=== PATIENT | female | born 1985 | race Caucasian/White ===

== ENCOUNTER 2016-09-20 20:44 | Emergency (ER) | payer OTHER ==
[~2016-09-20] VITALS: Ht 165.1 cm; Wt 68.3 kg
[2016-09-20 22:07] VITALS: BP 100/70
== END 2016-09-20 22:11 | disposition home or self-care (01) ==
LOC: EME 20:44
DX: S01.81XA Laceration without foreign body of other part of head, initial encounter (principal); S09.90XA Unspecified injury of head, initial encounter; W01.118A Fall on same level from slipping, tripping and stumbling with subsequent striking against other sharp object, initial encounter; F10.129 Alcohol abuse with intoxication, unspecified; F17.200 Nicotine dependence, unspecified, uncomplicated
CPT/HCPCS: 70450; 99281; 99284

== ENCOUNTER 2017-12-12 02:07 | Emergency (ER) | payer OTHER ==
[~2017-12-12] VITALS: Ht 170.2 cm; Wt 74.6 kg
[2017-12-12 02:29] LABS: HEMATOCRIT 40.3 % (36.0-46.0); HEMOGLOBIN 14.2 G/DL (11.9-15.5); MCH 32.4 PG (29.0-34.0); MCHC 35.2 G/DL (30.0-36.0); PLATELET COUNT 404 K/uL (156-360); RBC DIS.WIDTH-CV 13.5 % (11.8-14.6); RED BLOOD COUNT 4.38 M/uL (3.80-5.20); WHITE BLOOD COUNT 10.1 K/uL (4.1-10.2)
[2017-12-12 02:36] LABS: AMPHETAMINE NEGATIVE (500 ng/mL); BARBITURATES NEGATIVE (200 ng/mL); BENZODIAZEPINES NEGATIVE (150 ng/mL); BUPRENORPHINE NEGATIVE (10 ng/mL); COCAINE NEGATIVE (150 ng/mL); METHADONE NEGATIVE (200 ng/mL); METHAMPHETAMINE NEGATIVE (500 ng/mL); OPIATES (MORPHINE) NEGATIVE (100 ng/mL); OXYCODONE NEGATIVE (100 ng/mL); PHENCYCLIDINE NEGATIVE (25 ng/mL); PROPOXYPHENE NEGATIVE (300 ng/mL); THC CANNABINOIDS PRESUMPTIVE POSITIVE (50 ng/mL); TRICYCLIC ANTIDEPRESSANTS NEGATIVE (300 ng/mL)
[2017-12-12 02:47] LABS: ALBUMIN 4.3 g/dL (3.2-4.8)
[2017-12-12 02:48] LABS: CHLORIDE 110 mEq/L (99-109); POTASSIUM 3.5 mEq/L (3.7-5.4); SODIUM 140 mEq/L (136-147)
[2017-12-12 02:50] LABS: GLUCOSE 107 mg/dL (70-99)
[2017-12-12 02:52] LABS: TOTAL BILIRUBIN 0.7 mg/dL (0.0-1.0)
[2017-12-12 02:53] LABS: ALKALINE PHOSPHATASE 89 IU/L (3-129); SERUM ETHYL ALCOHOL 207 mg/dL
[2017-12-12 02:54] LABS: CREATININE 0.8 mg/dL (0.6-1.3); GFR ESTIMATE (CALCULATED) > 59 mL/min/
[2017-12-12 02:55] LABS: AST (GOT) 18 IU/L (2-34); UREA NITROGEN (BUN) 9 mg/dL (9-23)
[2017-12-12 02:57] LABS: ALT (GPT) 11 IU/L (3-49)
[2017-12-12 06:34] VITALS: BP 151/86
== END 2017-12-12 06:34 | disposition home or self-care (01) ==
LOC: EME 02:07
PROVIDERS: Emergency Medicine
DX: F32.9 Major depressive disorder, single episode, unspecified (principal); F10.129 Alcohol abuse with intoxication, unspecified; Y90.7 Blood alcohol level of 200-239 mg/100 ml; F41.9 Anxiety disorder, unspecified; F17.200 Nicotine dependence, unspecified, uncomplicated
CPT/HCPCS: 80053; 81025; 84999; 85027; 99281; 99285; G0480